=== PATIENT | female | born 1960 | race Caucasian/White ===

== ENCOUNTER 2016-10-24 02:32 | Emergency (ER) | payer BC, OTHER ==
[~2016-10-24] VITALS: Ht 167.6 cm; Wt 54.5 kg
[2016-10-24 02:33] VITALS: Ht 167.6 cm; Wt 54.5 kg
--- NOTE | 2016-10-24 02:48 | ERA ---
ER Documentation Chief Complaint Date/Time DATE: 10/24/16 TIME: 02:47 Chief Complaint AP HPI The patient is a 56-year-old female, presenting to the ER because of diffuse abdominal pain that began about 1 PM yesterday, the pain is worse this morning, therefore she came to the ER. The pain is 7/10, no aggravating or relieving factor. She denies fever, chills, neck pain, chest pain, dyspnea, dysuria, diarrhea, constipation. She does not smoke, drinks regularly Past medical history: Hemorrhoids, history of C. 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 Medications Home Meds Active Scripts Ibuprofen* (Motrin*) 600 Mg Tab, 600 MG PO Q6H Y for PAIN AND OR ELEVATED TEMP, #20 TAB Prov:HUMPHREY BELTRAN MD 10/24/16 Sulfamethoxazole-Trimethoprim* (Bactrim* DS) 800-160 Mg Tab, 1 TAB PO BID for 7 Days, TAB Prov:HUMPHREY BELTRAN MD 10/24/16 PMhx/Soc Hx Alcohol Use: No Hx Substance Use: No Hx Tobacco Use: No Physical Exam Vitals Vital Signs Date Time Temp Pulse Resp B/P Pulse Ox O2 Delivery O2 Flow Rate FiO2 10/24/16 02:33 98.5 77 20 159/77 100 Physical Exam Const: No acute distress. Head: Atraumatic. Eyes: Normal Conjunctiva. ENT: Normal External Ears, Nose and Mouth. Neck: Full range of motion. No meningismus. Resp: Clear to auscultation bilaterally. Cardio: Regular rate and rhythm, no murmurs. Abd: Soft, non distended, normal bowel sounds, diffuse abdominal pain , more tenderness at right lower quadrant, no rigidity, rebound, CVA tenderness Skin: No petechiae or rashes. Back: No midline or flank tenderness. Ext: No cyanosis, or edema. Neur: Awake and alert. No focal deficit Psych: Normal Mood and Affect. Result Diagram: 10/24/16 0300 10/24/16 0300 Results 24 hrs Laboratory Tests Test 10/24/16 03:00 10/24/16 04:20 White Blood Count 11.810^3/ul Red Blood Count 4.2910^6/ul Hemoglobin 13.5g/dl Hematocrit 40.9% Mean Corpuscular Volume 95.3fl Mean Corpuscular Hemoglobin 31.5pg Mean Corpuscular Hemoglobin Concent 33.0g/dl Red Cell Distribution Width 12.8% Platelet Count 26534^3/UL Mean Platelet Volume 9.6fl Neutrophils % 76.1% Lymphocytes % 15.1% Monocytes % 7.1% Eosinophils % 0.8% Basophils % 0.6% Nucleated Red Blood Cells % 0.0/100WBC Neutrophils # 9.010^3/ul Lymphocytes # 1.810^3/ul Monocytes # 0.810^3/ul Eosinophils # 0.110^3/ul Basophils # 0.110^3/ul Nucleated Red Blood Cells # 0.010^3/ul Sodium Level 138mmol/L Potassium Level 4.0mmol/L Chloride Level 100mmol/L Carbon Dioxide Level 27mmol/L Anion Gap 15 Blood Urea Nitrogen 11mg/dl Creatinine 0.70mg/dl Glucose Level 113mg/dl Calcium Level 10.2mg/dl Total Bilirubin 0.6mg/dl Direct Bilirubin 0.00mg/dl Indirect Bilirubin 0.6mg/dl Aspartate Amino Transf (AST/SGOT) 24IU/L Alanine Aminotransferase (ALT/SGPT) 21IU/L Alkaline Phosphatase 58IU/L Total Protein 8.1g/dl Albumin 4.7g/dl Globulin 3.40g/dl Albumin/Globulin Ratio 1.38 Lipase 117U/L Ethyl Alcohol Level < 10.0mg/dl Bedside Urine pH (LAB) 7.0 Bedside Urine Protein (LAB) Negative Bedside Urine Glucose (UA) Negative Bedside Urine Ketones (LAB) 1+ Bedside Urine Blood Negative Bedside Urine Nitrite (LAB) Negative Bedside Urine Leukocyte Esterase (L 2+ Current Medications Medications (Trade) Dose Ordered Sig/Paul Route PRN Reason Start Time Stop Time Status Last Admin Dose Admin Morphine Sulfate (morphine) 4 mg ONCE STAT IV 10/24/16 02:53 10/24/16 02:55 DC 10/24/16 03:05 Ondansetron HCl (Zofran Inj) 4 mg ONCE STAT IV 10/24/16 02:53 10/24/16 02:55 DC 10/24/16 03:05 Ondansetron HCl (Zofran Inj) 4 mg ONCE STAT IV 10/24/16 03:11 10/24/16 03:12 DC 10/24/16 03:16 Procedures/MDM MEDICAL MAKING DECISION: The patient is a 56-year-old female, presenting with acute abdominal pain of unclear etiology, acute cystitis. She was treated with morphine 4 mg IV for pain and Zofran four milligram IV 2 for nausea with good response. The differential diagnoses considered include but are not limited to cholelithiasis, cholecystitis, cystitis, pancreatitis, hepatitis, gastritis, peptic ulcer disease, gastric ulcer, appendicitis, diverticulitis, cholangitis, choledocholithiasis, partial small bowel obstruction. She declined the abdominal pelvic CT scan to rule out appendicitis. Risks, benefits, alternatives were explained to the patient. She is aware that appendicitis and no other intra-abdominal pathology cannot be excluded Departure Diagnosis: Primary Impression: Abdominal pain Additional Impression: UTI (urinary tract infection) Condition: Stable Comments She was discharged with Bactrim DS and Motrin I discussed the findings with the patient. I advised the patient to follow-up with the primary physician in the morning for evaluation and return if any concern. The patient's blood pressure was elevated (>120/80) but appears stable without evidence of hypertension emergency or urgency. The patient was counseled about the risks of hypertension and urged to pursue outpatient monitoring and therapy within a week with their primary care physician. HUMPHREY BELTRAN MD Oct 24, 2016 02:48 HUMPHREY BELTRAN MD Oct 24, 2016 02:48
[2016-10-24] MEDS ORDERED: ONDANSETRON 4 MG INJ IV STA ×2 (02:53→03:11)
[2016-10-24] MEDS ORDERED: morphine 4 MG/ML VIAL IV STA (02:53)
[2016-10-24 03:14] LABS: ADD SCAN DIFF NO
[2016-10-24 03:24] LABS: ALBUMIN 4.7 g/dl (3.3-4.9); CHLORIDE 100 mmol/L (97-110)
[2016-10-24 03:25] LABS: SODIUM 138 mmol/L (135-144)
[2016-10-24 03:27] LABS: ANION GAP 15 (8-16); ASPARTATE AMINO TRANSFERASE 24 IU/L (15-46); BILIRUBIN,INDIRECT 0.6 mg/dl (0-1.1); BILIRUBIN,TOTAL 0.6 mg/dl (0.2-1.3); CARBON DIOXIDE 27 mmol/L (21-31)
[2016-10-24 03:28] LABS: ALANINE AMINOTRANSFERASE 21 IU/L (13-69); ALBUMIN/GLOBULIN RATIO 1.38; ALKALINE PHOSPHATASE 58 IU/L (42-121); BLOOD UREA NITROGEN 11 mg/dl (7-20); CALCIUM 10.2 mg/dl (8.4-10.2); GLUCOSE 113 mg/dl (70-220); TOTAL PROTEIN 8.1 g/dl (6.1-8.1)
[2016-10-24 03:39] LABS: BASOPHIL # 0.1 10^3/ul (0.0-0.1); BASOPHILS % 0.6 % (0.0-2.0); EOSINOPHILS # 0.1 10^3/ul (0.0-0.5); EOSINOPHILS % 0.8 % (0.0-7.0); HEMATOCRIT 40.9 % (37.0-47.0); HEMOGLOBIN 13.5 g/dl (12.0-16.0); LYMPHOCYTES # 1.8 10^3/ul (0.8-2.9); LYMPHOCYTES % 15.1 % (15.0-51.0); MEAN CORPUSCULAR HEMOGLOBIN 31.5 pg (29.0-33.0); MEAN CORPUSCULAR VOLUME 95.3 fl (82.0-101.0); MEAN PLATELET VOLUME 9.6 fl (7.4-10.4); MONOCYTE # 0.8 10^3/ul (0.3-0.9); MONOCYTES % 7.1 % (0.0-11.0); NEUTROPHILS % 76.1 % (39.0-77.0); PLATELET COUNT 354 10^3/UL (140-415); RED BLOOD COUNT 4.29 10^6/ul (4.20-5.40); RED CELL DISTRIBUTION WIDTH 12.8 % (11.5-14.5); WHITE BLOOD COUNT 11.8 10^3/ul (4.8-10.8)
[2016-10-24 03:41] LABS: ETHANOL < 10.0 mg/dl
[2016-10-24 04:21] LABS: URINE BLOOD (Dip) POC Negative (NEGATIVE)
[2016-10-24] MEDS ORDERED: IBUP-1542 PO (04:23)
[2016-10-24] MEDS ORDERED: BACTDS PO (04:23)
[2016-10-24 04:33] VITALS: BP 131/89; PULSE 78; RESP 20; TEMP 98.6
== END 2016-10-24 04:36 | disposition home or self-care (01) ==
LOC: E/R 02:32
DX: R10.84 Generalized abdominal pain (principal); N39.0 Urinary tract infection, site not specified; R11.0 Nausea
CPT/HCPCS: 80053; 80306; 81003; 83690; 85025; 93005; J2270; J2405; 36415; 96374; 96375

== ENCOUNTER 2018-01-30 18:55 | Emergency (ER) | END 2018-01-30 20:25 | disposition home or self-care (01) ==

== ENCOUNTER 2018-02-02 21:46 | Emergency (ER) | END 2018-02-03 04:09 | disposition home or self-care (01) ==